=== PATIENT | male | born 1945 | race African-American/Black ===

== ENCOUNTER 2018-11-05 08:42 | Day surgery (SDC) | payer MEDICARE ==
[~2018-11-05] VITALS: Ht 160 cm; Wt 62.6 kg
[2018-11-05] MEDS ORDERED: ATOR-2 MT (09:44)
[2018-11-05] MEDS ORDERED: TAMS-11 MT (09:44)
[2018-11-05] MEDS ORDERED: VIT1TABL77 MT (09:44)
[2018-11-05] MEDS ORDERED: COR6 MT (09:44)
[2018-11-05] MEDS ORDERED: FOLI-43 MT (09:44)
[2018-11-05] MEDS ORDERED: APIX2.5T MT (09:44)
[2018-11-05] MEDS ORDERED: POTA20TA12 MT (09:44)
[2018-11-05] MEDS ORDERED: MIDAZOLAM HCL 2 MG/2 ML VIAL ONE (10:06)
[2018-11-05] MEDS ORDERED: LIDOCAINE HCL 1% 20ML VIAL (Pyxis) INJ ONE (10:07)
[2018-11-05] MEDS ORDERED: FENTANYL CITRATE/PF 50MCG/ML 2ML VIAL ONE (10:07)
[2018-11-05] MEDS ORDERED: IODIXANOL 320MG/ML 100 ML BOTTLE IV ONE (10:07)
[2018-11-05] MEDS ORDERED: ACETAMINOPHEN 325MG TABLET PO PRN (11:00)
[2018-11-05] MEDS ORDERED: ONDANSETRON HCL 4MG/2ML INJ IV PRN (11:00)
[2018-11-05] MEDS ORDERED: ATROPINE SULFATE 1MG/10ML SYR IV PRN (11:00)
[2018-11-05] MEDS ORDERED: NICARDIPINE 100MCG/ML 10ML VIAL (CATH LAB) IV ONE (13:10)
[2018-11-05] MEDS ORDERED: HEPARIN SODIUM 1,000 UNIT/1ML VIAL IV ONE (13:10)
[2018-11-05] MEDS ORDERED: NITROGLYCERIN 50MCG/ML 10ML VIAL (CATH LAB) IV ONE (13:10)
== END 2018-11-05 14:00 | disposition home or self-care (01) ==
LOC: CCL 08:42
PROVIDERS: ATTEND Specialist
DX: I25.10 Atherosclerotic heart disease of native coronary artery without angina pectoris (principal); E78.5 Hyperlipidemia, unspecified; I11.0 Hypertensive heart disease with heart failure; I50.9 Heart failure, unspecified; I42.9 Cardiomyopathy, unspecified; N40.0 Benign prostatic hyperplasia without lower urinary tract symptoms; Z79.01 Long term (current) use of anticoagulants; Z79.899 Other long term (current) drug therapy; Z79.82 Long term (current) use of aspirin; Z86.73 Personal history of transient ischemic attack (TIA), and cerebral infarction without residual deficits
CPT/HCPCS: 93458; 99152; C1769; C1887; C1893; J1644; J2250; J3010; J3490; Q9967; G0500